=== PATIENT | male | born 1995 | race Caucasian/White ===

== ENCOUNTER 2017-10-04 18:19 | Emergency (ER) | payer OTHER ==
[2017-10-04 18:39] VITALS: BP 125/88; PULSE 65; RESP 16; TEMP 98.3; O2SAT 99
--- NOTE | 2017-10-04 19:02 | RADRPT ---
EXAM DATE/TIME: 10/04/2017 18:50 [place] COMPARISON: No previous studies available for comparison. INDICATIONS : Left sided chest pain. MEDICAL HISTORY : Current smoker. SURGICAL HISTORY : None. ENCOUNTER: Initial ACUITY: 1 day PAIN SCORE: 5/10 LOCATION: Left chest FINDINGS: PA and lateral views of the chest demonstrate the lungs to be symmetrically aerated without evidence of mass, infiltrate or effusion. The cardiomediastinal contours are unremarkable. Osseous structure s are intact. CONCLUSION: No acute disease. Jonny Elkins MD on October 04, 2017 at 19:00 Board Certified Radiologist. This report was verified electronically.
[2017-10-04 19:35] LABS: AUTOMATED NEUTROPHIL # 3.3 TH/MM3 (1.8-7.7); BASOPHIL % 0.4 % (0.0-2.0); EOSINOPHIL # 0.3 TH/MM3 (0-0.4); EOSINOPHIL % 4.2 % (0.0-4.0); HEMATOCRIT 48.2 % (39.0-51.0); HEMOGLOBIN 16.6 GM/DL (13.0-17.0); LYMPH % 36.7 % (9.0-44.0); LYMPHOCYTE # 2.4 TH/MM3 (1.0-4.8); MEAN CELL VOLUME 91.4 FL (80.0-100.0); MEAN CORPUSCULAR HEMOGLOBIN 31.4 PG (27.0-34.0); MEAN CORPUSCULAR HGB CONC 34.4 % (32.0-36.0); MEAN PLATELET VOLUME 8.5 FL (7.0-11.0); MONO % 8.5 % (0.0-8.0); MONOCYTE # 0.6 TH/MM3 (0-0.9); NEUT % 50.2 % (16.0-70.0); PLATELET COUNT 216 TH/MM3 (150-450); RED BLOOD COUNT 5.28 MIL/MM3 (4.50-5.90); RED CELL DISTRIBUTION WIDTH 13.6 % (11.6-17.2); WHITE BLOOD COUNT 6.6 TH/MM3 (4.0-11.0)
[2017-10-04 19:53] LABS: ALBUMIN 4.2 GM/DL (3.4-5.0); ALT (GPT) 27 U/L (12-78); AST (GOT) 19 U/L (15-37); BICARBONATE 28.2 MEQ/L (21.0-32.0); BLOOD UREA NITROGEN 11 MG/DL (7-18); CALCIUM 9.4 MG/DL (8.5-10.1); CHLORIDE 106 MEQ/L (98-107); CREATININE 0.98 MG/DL (0.60-1.30); D-DIMER LESS THAN 0.19 MG/L FEU (0.00-0.50); GLOMERULAR FILTRATION RATE 95 ML/MIN (>89); GLUCOSE,RANDOM 83 MG/DL (74-106); MAGNESIUM 2.2 MG/DL (1.5-2.5); PROTHROMBIN TIME - PATIENT 10.6 SEC (9.8-11.6); SODIUM (NA) 141 MEQ/L (136-145)
[2017-10-04 19:57] LABS: ALKALINE PHOSPHATASE 75 U/L (45-117); TOTAL BILIRUBIN ADULT 0.3 MG/DL (0.2-1.0); TOTAL PROTEIN 7.6 GM/DL (6.4-8.2); TROPONIN I LESS THAN 0.02 NG/ML (0.02-0.05)
--- NOTE | 2017-10-04 20:44 | PD ---
HPI Chief Complaint: Chest Pain Time Seen by Provider: 20:39 Travel History International Travel<30 days: No Contact w/Intl Traveler<30days: No Traveled to known affect area: No History of Present Illness HPI The patient is a 22 year old male who presents to the [facility] emergency department with a history of chest pain that began approximately 1 hour ago. He reports that he was sitting outside when it began. He reports that it was painful to touch the left side of his chest and move his left arm. He denies any trauma to the area. He denies any recent heavy lifting or participation in any new exercise program. The patient denies having any shortness of breath associated with it. He reports that the pain was a dull aching sensation with intermittent twitching of the muscles in the left side of the chest. He denies any increased pain with taking a deep breath. He denies having any lower extremity edema, calf pain, or erythema. The patient reports having a family history of pulmonary embolism in his dad. The patient reports that he recently quit smoking and is now vaping. The patient denies any drug use other than occasional cannabis use per he denies having any recent problems with heartburn , reflux, or indigestion. The patient reports that he did recently complete a course of antibiotic for an upper respiratory infection. On review of systems otherwise, the patient denies having any known recent fevers, worsening cough or congestion, neck pain, abdominal pain, vomiting, diarrhea, urinary symptoms , or neurologic symptoms. The patient reports that the pain has completely resolved at this time. [facility] Past Medical History Narrative Medical The patient's past medical history is reportedly none. Past Surgical History Narrative Surgical The patient's past surgical history is reportedly none. Social History Alcohol Use: Yes (occasional use) Tobacco Use: Yes (vaping, with recent smoking cessation) Substance Use: Yes (THC) Allergies-Medications (Allergen,Severity, Reaction): Coded Allergies: No Known Allergies (Unverified , 10/04/17) Review of Systems Except as stated in HPI: all other systems reviewed are Neg General / Constitutional: No: Fever Eyes: No: Visual changes HENT: No: Headaches Cardiovascular: Positive: Chest Pain or Discomfort, No: Dyspnea on exertion Respiratory: No: Shortness of Breath Gastrointestinal: No: Nausea, Vomiting, Diarrhea, Abdominal Pain Genitourinary: No: Dysuria Musculoskeletal: Positive: Myalgias, Pain Skin: No Rash Neurologic: No: Weakness Psychiatric: No: Depression Endocrine: No: Polydipsia Hematologic/Lymphatic: No: Easy Bruising Physical Exam Narrative General: The patient is a well-developed well-nourished male in no acute distress. Head and Neck exam: Head is normocephalic atraumatic. Eyes: EOMI, pupils are equal round and reactive to light. Nose: Midline septum with pink mucous membranes Mouth: Dentition unremarkable. Moist mucus membranes. Posterior oropharynx is not erythematous. No tonsillar hypertrophy. Uvula midline. Airway patent. Neck: No palpable lymphadenopathy. No nuchal rigidity. No thyromegaly. Cardiovascular: Regular rate and rhythm without murmurs, gallops, or rubs. No pulse deficit to the extremities on simultaneous auscultation and palpation of his radial artery. No chest wall tenderness on palpation. No step-off or crepitus. No flail segment. No erythema or ecchymosis Lungs: Clear to auscultation bilaterally. No wheezes, rhonchi, or rales. Abdomen: Soft, without tenderness to palpation in all 4 quadrants of the abdomen. No guarding, rebound, or rigidity. Normal bowel sounds are audible. No tenderness on palpation of McBurney's point. Negative Mcdonald sign Extremities: No clubbing, cyanosis, or edema. 2+ pulses in all 4 extremities. Back: No spinous process tenderness to palpation. No costovertebral angle tenderness to palpation. Neurologic Exam: Grossly nonfocal. Skin Exam: On the skin of the patient's back the patient is noted to have fine erythematous papules. The patient reports that this has been present previously and he thought was related to acne. Intact skin that is warm and dry. Data Data Last Documented VS Vital Signs Date Time Temp Pulse Resp B/P (MAP) Pulse Ox O2 Delivery O2 Flow Rate FiO2 10/04/17 18:39 98.3 65 16 125/88 (100) 99 Orders Orders Electrocardiogram (10/04/17 18:42) Ckmb (Isoenzyme) Profile (10/04/17 18:42) Complete Blood Count With Diff (10/04/17 18:42) Comprehensive Metabolic Panel (10/04/17 18:42) D-Dimer (10/04/17 18:42) Magnesium (Mg) (10/04/17 18:42) Prothrombin Time / Inr (Pt) (10/04/17 18:42) Act Partial Throm Time (Ptt) (10/04/17 18:42) Troponin I (10/04/17 18:42) Lipase (10/04/17 18:42) Chest, Pa & Lat (10/04/17 18:42) Labs Laboratory Tests Test 10/04/17 19:19 White Blood Count 6.6 TH/MM3 Red Blood Count 5.28 MIL/MM3 Hemoglobin 16.6 GM/DL Hematocrit 48.2 % Mean Corpuscular Volume 91.4 FL Mean Corpuscular Hemoglobin 31.4 PG Mean Corpuscular Hemoglobin Concent 34.4 % Red Cell Distribution Width 13.6 % Platelet Count 216 TH/MM3 Mean Platelet Volume 8.5 FL Neutrophils (%) (Auto) 50.2 % Lymphocytes (%) (Auto) 36.7 % Monocytes (%) (Auto) 8.5 % Eosinophils (%) (Auto) 4.2 % Basophils (%) (Auto) 0.4 % Neutrophils # (Auto) 3.3 TH/MM3 Lymphocytes # (Auto) 2.4 TH/MM3 Monocytes # (Auto) 0.6 TH/MM3 Eosinophils # (Auto) 0.3 TH/MM3 Basophils # (Auto) 0.0 TH/MM3 CBC Comment DIFF FINAL Differential Comment Prothrombin Time 10.6 SEC Prothromb Time International Ratio 1.0 RATIO Activated Partial Thromboplast Time 25.2 SEC D-Dimer Quantitative (PE/DVT) LESS THAN 0.19 MG/L FEU Blood Urea Nitrogen 11 MG/DL Creatinine 0.98 MG/DL Random Glucose 83 MG/DL Total Protein 7.6 GM/DL Albumin 4.2 GM/DL Calcium Level 9.4 MG/DL Magnesium Level 2.2 MG/DL Alkaline Phosphatase 75 U/L Aspartate Amino Transf (AST/SGOT) 19 U/L Alanine Aminotransferase (ALT/SGPT) 27 U/L Total Bilirubin 0.3 MG/DL Sodium Level 141 MEQ/L Potassium Level 3.7 MEQ/L Chloride Level 106 MEQ/L Carbon Dioxide Level 28.2 MEQ/L Anion Gap 7 MEQ/L Estimat Glomerular Filtration Rate 95 ML/MIN Total Creatine Kinase 92 U/L Troponin I LESS THAN 0.02 NG/ML Lipase 142 U/L [facility] Medical Decision Making Medical Screen Exam Complete: Yes Emergency Medical Condition: Yes Medical Record Reviewed: Yes Differential Diagnosis Pulmonary embolism, versus pneumothorax, versus pleurisy, versus musculoskeletal strain, versus costochondritis, versus muscle spasm Narrative Course During the course of the patient's emergency department visit, the patient's history, examination, and differential diagnosis were reviewed with the patient. The patient was placed on a secured entrance monitor with oximetry and frequent blood pressure monitoring. The patient had IV access obtained and blood work sent for analysis. The patient had an EKG done on arrival. The patient's EKG revealed a sinus bradycardia heart rate of 51, QRS duration is 97 ms, QTC 361 ms. The patient has no acute ST segment elevation noted. The patient's laboratory studies were reviewed and remarkable for a white count of 6.6, hemoglobin 16.6, platelets 216 with 8.5 monocytes, eosinophils 4.2. CMP is within normal limits, lipase 142, cardiac enzymes within normal limits. PT PTT within normal limits, d-dimer is less than 0.19 decreasing likelihood of pulmonary embolism in this patient with no other significant risk factors. Radiology studies were reviewed and remarkable for a chest x-ray that shows no acute cardiopulmonary disease. No evidence of pneumothorax or infiltrate. On my arrival to the room, the patient's symptoms have completely resolved. The patient reports that he did have chest wall pain and twitching of the musculature of the left pectoral muscle. The patient's symptoms could be related to a muscle strain. The patient was instructed to do activity as tolerated. He was instructed that if he has a recurrence of symptoms he could take an anti-inflammatory pain medication as needed for pain. The patient was instructed that if he continues to have symptoms he should follow-up with his primary care physician for additional testing in 1 week. The patient is resting comfortably and feels better, is alert and in no distress. The patient's results and examination findings were discussed with the patient. The repeat examination is unremarkable and benign. The history, exam, diagnostic testing, and current condition do not suggest any significant pathology to warrant further testing, continued ED treatment, admission, or surgical evaluation at this point. The vital signs have been stable. The patient does not have uncontrollable pain, intractable vomiting, or other significant symptoms. The patient's condition is stable and appropriate for discharge. The patient will pursue further outpatient evaluation with a primary care physician or other designated or consulting physician as indicated in the discharge instructions. The patient expressed understanding and was agreeable with this plan. Diagnosis Primary Impression: Chest wall pain Referrals: Primary Care Physician 1 week Patient Instructions: Chest Wall Pain (ED), General Instructions Med/Other Pt SpecificInfo: No Meds Exist/No RX given Disposition: 01 DISCHARGE HOME Condition: Stable Katelyn Pitt MD Oct 04, 2017 20:44
--- NOTE | 2017-10-05 15:32 | EKG ---
Date Performed: 10/04/2017 Time Performed: 19:14:23 PTAGE: 22 years EKG: SINUS BRADYCARDIA BORDERLINE ECG NO PREVIOUS TRACING DOCTOR: Devin Hurtado Interpretating Date/Time 10/05/2017 15:23:09
== END 2017-10-04 21:40 | disposition home or self-care (01) ==
LOC: NEPC 18:19
DX: R07.89 Other chest pain (principal); R00.1 Bradycardia, unspecified; F17.290 Nicotine dependence, other tobacco product, uncomplicated
CPT/HCPCS: 71046; 80053; 82550; 83690; 83735; 84484; 85025; 85379; 85610; 85730; 93005; 99285